=== PATIENT | male | born 1955 | race Caucasian/White ===

== ENCOUNTER 2017-04-17 09:15 | Inpatient (IN) | payer OTHER ==
[~2017-04-17] VITALS: Ht 177.8 cm; Wt 104.8 kg
[~2017-04-17 09:15] MED LIST: CHOL500050 PO; FINA5TAB4 PO; OXYB10TA PO; PANT40TA5 PO; SIMV20TA3 PO; TAMS-11 PO; test; testosterone IM
[2017-04-17] MEDS ORDERED: LACTATED RINGERS 1,000 ML IV SCH (09:28)
[2017-04-17] MEDS ORDERED: LIDOCAINE 1%, 2ML ONE (09:30)
[2017-04-17] MEDS ORDERED: ACET325T14 PO (09:32)
[2017-04-17 09:34] VITALS: BP 145/91
[2017-04-17] MEDS ORDERED: LIDOCAINE 1%, 2ML SQ PRN (10:00)
[2017-04-17] MEDS ORDERED: FENTANYL PF 250 MCG/5ML ONE (10:17)
[2017-04-17] MEDS ORDERED: MIDAZOLAM 1 MG/ML, 2ML ONE (10:17)
[2017-04-17] MEDS ORDERED: DEXAMETHASONE 4 MG/ML, 1ML ONE (10:43)
[2017-04-17] MEDS ORDERED: ONDANSETRON 2MG/ML, 2ML ONE (10:43)
[2017-04-17] MEDS ORDERED: PROPOFOL 10 MG/ML, 20ML ONE (10:43)
[2017-04-17] MEDS ORDERED: ACETAMINOPHEN 325 MG TABLET PO PRN ×2 (11:30→14:30)
[2017-04-17] MEDS ORDERED: PROMETHAZINE 25 MG/ML, 1ML IV PRN (11:30)
[2017-04-17] MEDS ORDERED: OXYcodone 5 MG/5 ML ORAL.SOL UDC PO PRN (11:30)
[2017-04-17] MEDS ORDERED: ALBUTEROL/IPRATROPIUM 2.5MG/0.5MG, 3 ML NPPB PRN (11:30)
[2017-04-17] MEDS ORDERED: MIDAZOLAM 1 MG/ML, 2ML IV PRN (11:30)
[2017-04-17] MEDS ORDERED: LABETALOL 5MG/ML, 20ML IV PRN (11:30)
[2017-04-17] MEDS ORDERED: MEPERIDINE/PF 25MG/0.5ML IVPush PRN (11:30)
[2017-04-17] MEDS ORDERED: hydrALAzine 20 MG/ML, 1ML IV PRN (11:30)
[2017-04-17] MEDS ORDERED: ONDANSETRON 2MG/ML, 2ML IVPush PRN ×2 (11:30→12:30)
[2017-04-17] MEDS ORDERED: HYDROmorphone 1 MG/ML, 1ML IV PRN (11:30)
[2017-04-17] MEDS ORDERED: ACETAMINOPHEN 650 MG/20.3 ML UDC ONE (12:04)
[2017-04-17] MEDS ORDERED: FENTANYL PF 100 MCG/2ML ONE (12:04)
[2017-04-17] MEDS ORDERED: OXYcodone 5 MG/5 ML ORAL.SOL UDC ONE (12:05)
[2017-04-17] MEDS: FENTANYL PF 100 MCG/2ML IV PRN ×4 (12:11→12:54)
[2017-04-17] MEDS ORDERED: OPIUM/BELLADONNA SUPP.RECT 16.2-60 MG ONE ×2 (12:21→12:37)
[2017-04-17] MEDS ORDERED: POTASSIUM CHLORIDE 20 MEQ in D5%-0.45% NACL 1,000 ML IV SCH ×2 (12:24→16:00)
[2017-04-17] MEDS: OPIUM/BELLADONNA SUPP.RECT 16.2-60 MG PR PRN (12:55)
[2017-04-17 14:00] VITALS: BP 134/83
[2017-04-17] MEDS ORDERED: ZOLPIDEM 5MG TABLET PO PRN (14:30)
[2017-04-17] MEDS: HYDROcodone/APAP 5/325 TABLET PO PRN ×2 (15:24→21:32)
[2017-04-17 18:45] VITALS: BP 130/83
[2017-04-17 20:20] VITALS: BP 118/76
[2017-04-17] MEDS: DOCUSATE 100 MG CAPSULE PO SCH (21:32)
[2017-04-17] MEDS: CIPROFLOXACIN/PMX 400MG/200ML 200 ML IVPB SCH (23:58)
[2017-04-18 00:05] VITALS: BP 115/60
[2017-04-18 04:38] VITALS: BP 117/70
[2017-04-18] MEDS: HYDROcodone/APAP 5/325 TABLET PO PRN ×3 (05:06→16:07)
[2017-04-18] MEDS ORDERED: LIDOCAINE GEL 2%, 5ML TP STA (05:42)
[2017-04-18] MEDS: OPIUM/BELLADONNA SUPP.RECT 16.2-60 MG PR PRN (06:01)
[2017-04-18 06:50] LABS: BLOOD UREA NITROGEN 15 mg/dL (7-18)
[2017-04-18 07:05] VITALS: BP 109/62
[2017-04-18] MEDS: DOCUSATE 100 MG CAPSULE PO SCH ×2 (08:14→20:36)
[2017-04-18] MEDS: FINASTERIDE 5 MG TABLET PO SCH (08:14)
[2017-04-18] MEDS: CIPROFLOXACIN/PMX 400MG/200ML 200 ML IVPB SCH (11:26)
[2017-04-18 13:10] VITALS: BP 114/66
[2017-04-18 18:39] VITALS: BP 120/75
[2017-04-19 02:07] VITALS: BP 134/71
[2017-04-19 05:03] LABS: BLOOD UREA NITROGEN 13 mg/dL (7-18)
[2017-04-19 07:59] VITALS: BP 129/78
[2017-04-19] MEDS: FINASTERIDE 5 MG TABLET PO SCH (08:10)
[2017-04-19] MEDS: DOCUSATE 100 MG CAPSULE PO SCH (08:10)
[2017-04-19] MEDS: HYDROcodone/APAP 5/325 TABLET PO PRN (12:04)
[2017-04-19] MEDS ORDERED: HYDR-3240 PO (12:19)
== END 2017-04-19 12:50 | disposition home or self-care (01) | DRG 714 ==
LOC: OR 09:15 → ORIP 12:24 → 4NOR 14:00 → DCLOUNGE 04-19 12:10
PROVIDERS: ADMIT Urology; ATTEND Urology
PROC: 0VT08ZZ Resection of Prostate, Via Natural or Artificial Opening Endoscopic (ICD-10-PCS; principal; 2017-04-17 11:30)
DX: N40.1 Benign prostatic hyperplasia with lower urinary tract symptoms (principal); R31.9 Hematuria, unspecified
CPT/HCPCS: 36415; 80048; 85014; 85018; 88305; J0744; J1100; J2250; J2405; J2704; J3010; J3480; J3490; J7120